=== PATIENT | male | born 1950 | race Caucasian/White ===

== ENCOUNTER 2017-06-22 10:43 | Outpatient (CLI) | payer MEDICARE ==
--- NOTE | 2017-06-22 17:49 | CT ---
CT OF THE LEFT SHOULDER 06/22/17 Computed tomography of the left shoulder was performed following trauma. Axial slices were acquired, then coronal and sagittal reconstructions were done. No major fracture was indicated on these studies. There were a few slices through the mid scapular laura dy that showed a little irregularity of the cortex. This probably is the patient's baseline, however, if there were tenderness in the posterior mid-scapular region, then a minimal fracture might be poss ible. Even if real, it would likely be of little consequence. There really is no obvious swelling in the muscle around it. The joints appear intact with no sign of dislocation. The adjacent lung is clear. The visible ribs ap peared intact. Coronary artery calcifications were noted. IMPRESSION: No definite acute findings. See comments about the scapular body above. POS: HOME
== END 2017-06-22 10:44 | disposition home or self-care (01) ==
LOC: BURCT 10:43
PROVIDERS: ATTEND Family Medicine
DX: M25.512 Pain in left shoulder (principal)

== ENCOUNTER 2021-11-07 17:11 | Emergency (ER) | payer MEDICARE ==
[2021-11-07] MEDS ORDERED: Lidocaine 4% Cream 5 GM TUBE w/ Tegaderm ONE (17:32)
== END 2021-11-07 18:20 | disposition home or self-care (01) ==
LOC: BURERS 17:11
DX: S01.01XA Laceration without foreign body of scalp, initial encounter (principal); W22.8XXA Striking against or struck by other objects, initial encounter
CPT/HCPCS: 12002